=== PATIENT | male | born 1980 | race Caucasian/White ===

== ENCOUNTER 2016-12-07 18:52 | Emergency (ER) | payer OTHER ==
[~2016-12-07] VITALS: Ht 167.6 cm; Wt 95.3 kg
[~2016-12-07 18:52] MED LIST: IBU-200200 M1; MOTRIN800 MG PO; NORCO 10/325 MG1 TAB PO; ZYLOPRIM300 MG PO; [UNRECOGNIZED DRUG - REMARK]
[2016-12-07 19:04] VITALS: BP 160/81
--- NOTE | 2016-12-07 19:07 | NUR ---
Patient ambulated to OF. RN evaluating patient at bedside.
[2016-12-07] MEDS ORDERED: ACETAMINOPHEN EXTRA STRENGTH 500 MG TAB ONE (19:15)
--- NOTE | 2016-12-07 19:15 | NUR ---
RECEIVED REPORT FROM Rafiq BIANCHI RN FOR CONTINUITY OF CARE. PATIENT SITTING IN CHAIR.
--- NOTE | 2016-12-07 19:15 | NUR ---
PATIENT PRESENTS TO ED WITH FEVER, COUGH, AND GENERALIZED BODY ACHES AND JOINT PAIN. . DENIES N/V/D; SKIN IS PINK/WARM/DRY; AAOX4 WITH EVEN AND STEADY GAIT; LUNGS CLEAR BL; HR EVEN AND REGULAR; PATIENT STATES PAIN OF 10/10 AT THIS TIME; VSS; PT SEEN BY IRENA SMITH.
--- NOTE | 2016-12-07 19:15 | NUR ---
PA SMITH EVALUATING PATIENT
--- NOTE | 2016-12-07 19:20 | NUR ---
Pt report given to FERMIN STARR. Transfer of care at this time.
--- NOTE | 2016-12-07 19:21 | NUR ---
Dr. Vásquez evaluating patient
[2016-12-07 19:29] VITALS: BP 104/76
--- NOTE | 2016-12-07 19:29 | NUR ---
Patient discharged with v/s stable. Written and verbal after care instructions given and explained. Patient alert, oriented and verbalized understanding of instructions. Ambulatory with steady gait. All questions addressed prior to discharge. ID band removed. Patient advised to follow up with PMD. Rx of AUGMENTIN 875MG, CODEINE PHOSPHATE AND NORCO given. Patient educated on indication of medication including possible reaction and side effects. Opportunity to ask questions provided and answered. DISCHARGED BY
== END 2016-12-07 19:29 | disposition home or self-care (01) ==
LOC: MED 18:52
DX: J06.9 Acute upper respiratory infection, unspecified (principal)

== ENCOUNTER 2017-02-15 19:26 | Emergency (ER) | payer OTHER ==
[~2017-02-15] VITALS: Ht 170.2 cm; Wt 93.0 kg
[~2017-02-15 19:26] MED LIST changes: -IBU-200200 M1; +IBUP-974 PO; -MOTRIN800 MG PO; -NORCO 10/325 MG1 TAB PO; -ZYLOPRIM300 MG PO; -[UNRECOGNIZED DRUG - REMARK]
[2017-02-15 19:35] VITALS: BP 143/68
--- NOTE | 2017-02-15 20:12 | NUR ---
Patient ambulated to OF1.
--- NOTE | 2017-02-15 20:17 | NUR ---
PA student evaluating patient.
--- NOTE | 2017-02-15 20:28 | NUR ---
Dr. Abby willsuting patient.
[2017-02-15] MEDS ORDERED: KETOROLAC 30 MG/ML VIAL IVP ONE (20:35)
[2017-02-15 21:04] VITALS: BP 113/80
--- NOTE | 2017-02-15 21:04 | NUR ---
Patient discharged with v/s stable. Written and verbal after care instructions given and explained. Patient alert, oriented and verbalized understanding of instructions. Ambulatory with steady gait. All questions addressed prior to discharge. ID band removed. Patient advised to follow up with PMD. Rx of Indomethecin and Prednisone given. Patient educated on indication of medication including possible reaction and side effects. Opportunity to ask questions provided and answered.
== END 2017-02-15 21:04 | disposition home or self-care (01) ==
LOC: MED 19:26
DX: M10.9 Gout, unspecified (principal); M79.674 Pain in right toe(s); I10 Essential (primary) hypertension
CPT/HCPCS: 93005; 96372; 99283; J1885

== ENCOUNTER 2017-02-17 14:55 | Emergency (ER) | payer OTHER ==
[~2017-02-17] VITALS: Ht 167.6 cm; Wt 90.7 kg
[2017-02-17 15:01] VITALS: BP 139/80
--- NOTE | 2017-02-17 16:21 | NUR ---
Patient ambulated to bed 4. RN evaluating patient at bedside.
--- NOTE | 2017-02-17 16:30 | NUR ---
PT PRESENTS TO ER W/C/O LEFT ARM PAIN THAT EXTENDS FROM HAND INTO SHOULDER X3 DAYS. HX GOUT. PT STATES HE WAS SEEN IN ER 3 DAYS AGO FOR SAME S/SX, BUT FEELS WORSE TODAY. . DENIES N/V/D; SKIN IS PINK/WARM/DRY; AAOX4 WITH EVEN AND STEADY GAIT; LUNGS CLEAR BL; HR EVEN AND REGULAR; PT DENIES ANY FEVER, CP, SOB, OR COUGH AT THIS TIME; PATIENT STATES PAIN OF 10/10 AT THIS TIME; VSS; PATIENT POSITIONED FOR COMFORT; HOB ELEVATED; BEDRAILS UP X2; BED DOWN. ER MD MADE AWARE OF PT STATUS.
[2017-02-17] MEDS ORDERED: HYDROmorphone 1 MG/ML AMP IM ONE (16:45)
[2017-02-17 17:22] VITALS: BP 121/76
--- NOTE | 2017-02-17 17:22 | NUR ---
Patient discharged with v/s stable. Written and verbal after care instructions given and explained. Patient alert, oriented and verbalized understanding of instructions. Ambulatory with steady gait. All questions addressed prior to discharge. ID band removed. Patient advised to follow up with PMD. Rx of COLCHICINE, ALLOPURINOL given. Patient educated on indication of medication including possible reaction and side effects. Opportunity to ask questions provided and answered.
== END 2017-02-17 17:22 | disposition home or self-care (01) ==
LOC: MED 14:55
DX: M10.9 Gout, unspecified (principal); I10 Essential (primary) hypertension; M79.602 Pain in left arm; M79.671 Pain in right foot; M06.9 Rheumatoid arthritis, unspecified
CPT/HCPCS: 36415; 84550; 96372; 99283; J1170

== ENCOUNTER 2017-08-07 22:09 | Emergency (ER) | payer OTHER ==
[~2017-08-07] VITALS: Ht 170.2 cm; Wt 95.3 kg
[2017-08-07 22:33] VITALS: BP 141/71
--- NOTE | 2017-08-07 23:13 | NUR ---
PT TAKEN TO XRAY FROM THE [facility]
--- NOTE | 2017-08-07 23:19 | NUR ---
PT RETURN FROM XRAY
--- NOTE | 2017-08-08 00:03 | NUR ---
PT TAKEN TO BED 8
--- NOTE | 2017-08-08 00:05 | NUR ---
PATIENT IS A 36 Y/O MALE WHO PRESENTS TO THE ED C/O FOOT PAIN. PT STATES, "A WEIGHT FELL ON MY FOOT AND NOW IT HURTS." PT REPORTS 10/10 SHARP PAIN ON THE RIGHT FOOT THAT DOES NOT RADIATE. CAP REFILL IMMEDIATE, SKIN INTACT, UNABLE TO MOVE FOOT. PT DENIES CP, SOB, N/V/D. PT AAOX4, RR EVEN/UNLABORED. PT REPOSITIONED FOR COMFORT, BED IN LOWEST POSITION. ER MD DR. FLAHERTY NOTIFIED. WILL CONTINUE TO MONITOR.
--- NOTE | 2017-08-08 01:17 | NUR ---
Dr. Araujo evaluating patient at bedside.
[2017-08-08] MEDS ORDERED: KETOROLAC 60 MG/2 ML VIAL IM ONE (01:20)
[2017-08-08 01:35] VITALS: BP 137/68
== END 2017-08-08 01:35 | disposition home or self-care (01) ==
LOC: MED 22:09
DX: S90.31XA Contusion of right foot, initial encounter (principal); Z79.899 Other long term (current) drug therapy; W04.XXXA Fall while being carried or supported by other persons, initial encounter; Y93.89 Activity, other specified; Y92.89 Other specified places as the place of occurrence of the external cause; Y99.8 Other external cause status
CPT/HCPCS: 73630; 96372; 99284; J1885

== ENCOUNTER 2018-05-27 12:11 | Emergency (ER) | payer OTHER ==
[~2018-05-27] VITALS: Ht 170.2 cm; Wt 98.9 kg
[~2018-05-27 12:11] MED LIST changes: +[UNRECOGNIZED DRUG - CODE] SC
--- NOTE | 2018-05-27 12:20 | NUR ---
PT AMBULATED TO ER BED 10
[2018-05-27 12:29] VITALS: BP 120/69
--- NOTE | 2018-05-27 12:35 | NUR ---
PATIENT HAVE GOUT. LIMPIMG. TOOK ENDOMETHASINE AND NO RELIEF OF PAIN PER PATIENT. DENIES ACUTE INJURY. REPORTS EATING PORK, AND THEN FEELING IMMEDIATE PAIN. NO OBVIOUS SWELLINGOR REDNESS NOTED. HX: GOUT AND ARTHRITIS. TAKES ENDOMETHASINE,ALUPURINOL
[2018-05-27] MEDS ORDERED: HYDROcodone/APAP 5/325 MG 1 TAB TAB PO ONE (12:55)
[2018-05-27] MEDS ORDERED: KETOROLAC 30 MG/ML VIAL IM ONE (12:55)
--- NOTE | 2018-05-27 13:08 | NUR ---
MEDICATED ORDERED, WILL MONITOR FOR S.E.
[2018-05-27 13:34] VITALS: BP 119/72
--- NOTE | 2018-05-27 13:35 | NUR ---
Patient discharged with v/s stable. Written and verbal after care instructions given and explained. Patient alert, oriented and verbalized understanding of instructions. Ambulatory with steady gait. All questions addressed prior to discharge. ID band removed. Patient advised to follow up with PMD. Rx of NORCO, NAPROXYN given. Patient educated on indication of medication including possible reaction and side effects. Opportunity to ask questions provided and answered.
== END 2018-05-27 13:35 | disposition home or self-care (01) ==
LOC: MED 12:11
DX: M10.072 Idiopathic gout, left ankle and foot (principal); Z79.1 Long term (current) use of non-steroidal anti-inflammatories (NSAID)
CPT/HCPCS: 96372; 99283; J1885

== ENCOUNTER 2018-06-29 03:08 | Emergency (ER) | payer OTHER ==
[~2018-06-29] VITALS: Ht 170.2 cm; Wt 99.8 kg
[2018-06-29 03:09] VITALS: BP 142/86
--- NOTE | 2018-06-29 03:14 | NUR ---
PT TAKEN TO BED 7
--- NOTE | 2018-06-29 03:26 | NUR ---
BIB SELF C/O RT SHOULDER PAIN, AND BL LOWER LEG PAIN SINCE YESTERDAY. NO REDNESS, SWELLING , PT DENIES TRAUMA TO AFFECTED AREAS. PT STATES HE TOOK HIS GOUT MEDICINE YESTERDAY W/ NO RELIEF. PT SITTING IN BED, POSITIONED TO COMFORT, SIDE RAIL UP X1.
[2018-06-29] MEDS ORDERED: KETOROLAC 60 MG/2 ML VIAL IM ONE (04:15)
--- NOTE | 2018-06-29 04:53 | NUR ---
PT STATES PAIN RELIEF AT THIS TIME, LAYING IN BED, WILL CONTINUE TO MONITOR.
--- NOTE | 2018-06-29 05:56 | NUR ---
Dr. Vásquez evaluating patient at bedside.
[2018-06-29 06:05] VITALS: BP 140/77
== END 2018-06-29 06:06 | disposition home or self-care (01) ==
LOC: MED 03:08
DX: M10.011 Idiopathic gout, right shoulder (principal)
CPT/HCPCS: 96372; 99283; J1885

== ENCOUNTER 2018-07-19 11:16 | Emergency (ER) | payer OTHER ==
[~2018-07-19] VITALS: Ht 170.2 cm; Wt 98.1 kg
--- NOTE | 2018-07-19 11:32 | NUR ---
PT AMBULATES TO BED 1
[2018-07-19 11:35] VITALS: BP 133/83
--- NOTE | 2018-07-19 11:55 | NUR ---
37 YO M TO ER FOR N/V/D XTODAY, PT REPORTS BODY ACHES AND R FOOT PAIN DUE TO "GOUT", CONGUSTION PRESENT, PT DENIES SOB, CP , ABD PAIN. LS CLEAR THROUGHOUT, BS ACTIVE X4, ABD SOFT ROUND NON TENDER. ER MD MADE AWARE, WILL CONTINUE TO MONITOR.
--- NOTE | 2018-07-19 12:15 | NUR ---
PT RESTING IN NO APPEARENT DISTRESS WILL CONTINU TO MONITOR
--- NOTE | 2018-07-19 13:17 | NUR ---
Patient being evaluated by physician at bedside.
[2018-07-19 13:58] VITALS: BP 130/76
--- NOTE | 2018-07-19 13:58 | NUR ---
Patient discharged with v/s stable. Written and verbal after care instructions given and explained. Patient alert, oriented and verbalized understanding of instructions. Ambulatory with steady gait. All questions addressed prior to discharge. ID band removed. Patient advised to follow up with PMD. Rx of MOTRIN, ZOFRAN, IMODIUM, SUDAFED given. Patient educated on indication of medication including possible reaction and side effects. Opportunity to ask questions provided and answered.
== END 2018-07-19 13:58 | disposition home or self-care (01) ==
LOC: MED 11:16
DX: R11.2 Nausea with vomiting, unspecified (principal); R19.7 Diarrhea, unspecified; R09.81 Nasal congestion; K21.9 Gastro-esophageal reflux disease without esophagitis; M06.9 Rheumatoid arthritis, unspecified; Z79.1 Long term (current) use of non-steroidal anti-inflammatories (NSAID)
CPT/HCPCS: 99283

== ENCOUNTER 2018-11-27 18:56 | Emergency (ER) | payer OTHER ==
[~2018-11-27] VITALS: Ht 170.2 cm; Wt 90.7 kg
[2018-11-27 19:11] VITALS: BP 131/75
--- NOTE | 2018-11-27 21:02 | NUR ---
PT AMBULATED TO BED 02.
--- NOTE | 2018-11-27 21:21 | NUR ---
PT BIB SELF C/O R FOOT PAIN 05/21 HX OF GOUT. STEADY GAIT. NO EVIDENCE OF SWELLING, CMS INTACT.
--- NOTE | 2018-11-27 21:24 | NUR ---
Patient discharged with v/s stable. Written and verbal after care instructions given and explained. Patient alert, oriented and verbalized understanding of instructions. Ambulatory with steady gait. All questions addressed prior to discharge. ID band removed. Patient advised to follow up with PMD. Rx of TAMIFLU, PERCOCET, AND PREDNISONE given. Patient educated on indication of medication including possible reaction and side effects. Opportunity to ask questions provided and answered.
[2018-11-27 21:25] VITALS: BP 135/70
== END 2018-11-27 21:25 | disposition home or self-care (01) ==
LOC: MED 18:56
DX: M10.9 Gout, unspecified (principal); K21.9 Gastro-esophageal reflux disease without esophagitis; Z79.1 Long term (current) use of non-steroidal anti-inflammatories (NSAID); Z79.899 Other long term (current) drug therapy
CPT/HCPCS: 99283

== ENCOUNTER 2018-12-08 00:44 | Emergency (ER) | payer OTHER ==
[~2018-12-08] VITALS: Ht 170.2 cm; Wt 90.7 kg
[2018-12-08 00:50] VITALS: BP 133/103
--- NOTE | 2018-12-08 00:53 | NUR ---
PT AMBULATED TO LOBBY WITH VSS.
[2018-12-08] MEDS ORDERED: NAPROXEN 500 MG TAB PO ONE (02:40)
--- NOTE | 2018-12-08 02:40 | NUR ---
CALLED HOUSE SUP. FOR MEDICATION, NOT AVAILABLE IN ER PYXIS, WILL FOLLOW UP.
--- NOTE | 2018-12-08 03:00 | NUR ---
PT BIB SELF C/O RIGHT KNEE PAIN STARTING LAST NIGHT. PT STATES HE HAS GOUT AND THINKS HE IS HAVING GOUT "FLARE UP" PT TOOK HOME MEDS W/O RELIEF. PT DENEIS TRAUMA TO AREA, TENDERNESS TO KNEE, NO OPEN SKIN.
--- NOTE | 2018-12-08 03:01 | NUR ---
MANUEL NOT AVAILABLE, ER MADE AWARE, CHANGE IN ORDERS.
--- NOTE | 2018-12-08 03:01 | NUR ---
US AT BEDSIDE.
[2018-12-08] MEDS ORDERED: IBUPROFEN 600 MG TAB PO ONE (03:05)
[2018-12-08 03:49] VITALS: BP 140/98
[2018-12-08] MEDS ORDERED: NAPROXEN 500 MG TAB PO SCH (09:00)
== END 2018-12-08 03:49 | disposition home or self-care (01) ==
LOC: MED 00:44
DX: M10.061 Idiopathic gout, right knee (principal); K21.9 Gastro-esophageal reflux disease without esophagitis; Z79.899 Other long term (current) drug therapy
CPT/HCPCS: 87086; 93971; 99284; Q0092

== ENCOUNTER 2019-02-25 19:58 | Emergency (ER) | payer OTHER ==
[~2019-02-25] VITALS: Ht 170.2 cm; Wt 95.3 kg
[2019-02-25 20:09] VITALS: BP 143/51
--- NOTE | 2019-02-25 22:17 | NUR ---
PATIENT AAO, NO NEW SYMPTOMS REPORTED. AMB WITH STEADY GAIT.
--- NOTE | 2019-02-26 | NUR ---
TO BED # 06 AMBULATORY, REPORT GIVEN TO ELIZABETH CHRISTENSEN
--- NOTE | 2019-02-26 00:16 | NUR ---
BIB SELF REPORTS GOUT FLARE UP WORSE TODAY. STATE HE HAS AN APPT ON THURSDAY BUT HE COULD NOT STAND THE PAIN. 07/21 ACHING. RESPIS E/U, DENIES CP/SOB AT THIS TIME. PLACED IN BED, LOCKED IN LOW POSITION, WILL CONTINUE TO MONITOR CLOSELY. HX: GOUT, RA
--- NOTE | 2019-02-26 01:26 | NUR ---
PATIENT LEFT WITHOUT BEING SEEN AT THIS TIME.
== END 2019-02-26 01:26 | disposition left against medical advice (07) ==
LOC: MED 19:58
DX: M10.9 Gout, unspecified (principal); Z53.21 Procedure and treatment not carried out due to patient leaving prior to being seen by health care provider

== ENCOUNTER 2019-03-18 17:58 | Emergency (ER) | payer OTHER ==
[~2019-03-18] VITALS: Ht 170.2 cm; Wt 99.8 kg
[2019-03-18 18:20] VITALS: BP 135/83
--- NOTE | 2019-03-18 18:23 | NUR ---
PATIENT AMBULATED TO ER BED 12.
--- NOTE | 2019-03-18 18:30 | NUR ---
PT IS A 38 Y/O MALE WHO PRESENTS TO THE ED C/O L LEG AND R ARM PAIN X8 YEARS. PT REPORTS 10/10 ACHING L LEG AND R ARM PAIN. NO OBVIOUS TRAUMA/DEFORMITY. CMS INTACT. PT TOOK TYLENOL AT 1200. PT DENIES CP, SOB, N/V/D. PT AWAKE AND ALERT, RR EVEN/UNLABORED. PT REPOSITIONED FOR COMFORT, BED IN LOWEST POSITION. ER MD MONTGOMERY NOTIFIED. WILL CONTINUE TO MONITOR. MEDHX:RA RX:TYLENOL, IBUPROFEN, ORENCIA
[2019-03-18] MEDS ORDERED: KETOROLAC 60 MG/2 ML VIAL IM ONE (18:40)
[2019-03-18] MEDS ORDERED: DEXAMETHASONE 10 MG/ML VIAL IM ONE (18:40)
[2019-03-18 19:25] VITALS: BP 132/85
--- NOTE | 2019-03-18 19:25 | NUR ---
Patient discharged with v/s stable. Written and verbal after care instructions given and explained. Patient alert, oriented and verbalized understanding of instructions. Ambulatory with steady gait. All questions addressed prior to discharge. ID band removed. Patient advised to follow up with PMD. Rx of VOLTAREN WAS given. Patient educated on indication of medication including possible reaction and side effects. Opportunity to ask questions provided and answered.PT STATED HIS PAIN HAD DECREASED TO A LEVEL 4/10 UPON D/C.
== END 2019-03-18 19:25 | disposition home or self-care (01) ==
LOC: MED 17:58
DX: M10.9 Gout, unspecified (principal); K21.9 Gastro-esophageal reflux disease without esophagitis; Z79.1 Long term (current) use of non-steroidal anti-inflammatories (NSAID); Z79.899 Other long term (current) drug therapy
CPT/HCPCS: 96372; 99283; J1100; J1885

== ENCOUNTER 2019-05-17 16:51 | Emergency (ER) | payer OTHER ==
[~2019-05-17] VITALS: Ht 170.2 cm; Wt 104.4 kg
[2019-05-17 16:58] VITALS: BP 109/77
[2019-05-17] MEDS ORDERED: ALLO100T21 PO ×2 (17:13→17:15)
--- NOTE | 2019-05-17 17:25 | NUR ---
PT TAKEN TO BED 7.
--- NOTE | 2019-05-17 18:00 | NUR ---
PT PRESENT TO ED C/O COUGH WITH YELLOW SPUTUM, GENERALIZED BODY PAIN, FEVER AND NAUSEA /VOMITING SINCE YESTERDAY. PT TOOK TYLENOL AND NYQUIL YESTERDAY WITH NO RELIEF. AAOX4, GCS 15, RR EVEN UNLABORED, LUNG SOUNDS CLEAR TO AUSCULTATION BILATERALLY NOTED NON-PRODUCTIVE COUGH. DENIES DIARRHEA, ED MD DR. ALEXANDRE MADE AWARE, WILL CONTINUE TO MONITOR CLOSELY, BED IN LOWEST POSITION.
[2019-05-17] MEDS ORDERED: ALBUTEROL 0.083% 2.5 MG/3 ML NEBU INH ONE (18:15)
[2019-05-17] MEDS ORDERED: KETOROLAC 60 MG/2 ML VIAL IM ONE (18:15)
[2019-05-17] MEDS ORDERED: IPRATROPIUM 0.02% 0.5 MG/2.5 ML NEBU INH ONE (18:15)
--- NOTE | 2019-05-17 18:25 | NUR ---
FLU SWAB COLLECTED AND SENT TO LAB
--- NOTE | 2019-05-17 18:35 | NUR ---
RT AT BEDSIDE, PT RECEIVING BREATHING TX
[2019-05-17 18:36] LABS: APPEARANCE,URINE CLEAR (CLEAR); BILIRUBIN,URINE NEGATIVE (NEGATIVE); BLOOD, URINE TRACE-I (NEGATIVE); COLOR,URINE YELLOW (YELLOW); LEUKOCYTE ESTERASE ,URINE TRACE (NEGATIVE); NITRITE, URINE NEGATIVE (NEGATIVE); PH,URINE 5.5 (5.0-9.0); UGLUCOSE NEGATIVE (NEGATIVE)
[2019-05-17 18:53] LABS: WBC,URINE 16-25 (MOD) /HPF (0-5)
--- NOTE | 2019-05-17 19:15 | NUR ---
REPORT RECEIVED FROM FERMIN HEATH. TRANSFER OF CARE AT THIS TIME.
--- NOTE | 2019-05-17 19:41 | NUR ---
Dr. San evaluating patient at bedside.
[2019-05-17 20:00] VITALS: BP 116/80
--- NOTE | 2019-05-17 20:00 | NUR ---
Patient discharged with v/s stable. Written and verbal after care instructions given and explained. Patient alert, oriented and verbalized understanding of instructions. Ambulatory with steady gait. All questions addressed prior to discharge. ID band removed. Patient advised to follow up with PMD. Rx of Promethazine, Naprosyn, Cephalexin, Zofran given. Patient educated on indication of medication including possible reaction and side effects. Opportunity to ask questions provided and answered.
[2019-05-20 06:07] LABS: CHLAMYDIA TRACHOMATIS AMP DNA Negative (Negative)
== END 2019-05-17 20:13 | disposition home or self-care (01) ==
LOC: MED 16:51
DX: N39.0 Urinary tract infection, site not specified (principal); B34.9 Viral infection, unspecified; K21.9 Gastro-esophageal reflux disease without esophagitis; Z79.899 Other long term (current) drug therapy
CPT/HCPCS: 36415; 71046; 81001; 87086; 87491; 87804; 94640; 94760; 96372; 99284; J1885; J7613; J7644

== ENCOUNTER 2019-05-25 13:36 | Emergency (ER) | payer OTHER ==
[~2019-05-25] VITALS: Ht 170.2 cm; Wt 99.8 kg
[~2019-05-25 13:36] MED LIST changes: +ALLO100T21 PO
[2019-05-25 13:38] VITALS: BP 126/76
--- NOTE | 2019-05-25 13:44 | NUR ---
pt biba with c/o lft rib pain since yesterday. has hx of gout and ra. per pt, was seen at er two weeks ago fro chronic cough, pt still coughing , has dry cough. pt states felt pain at his lft knee 10/10 this am and lft rib pain 8/10 today. takes allopurinol, norco at home. took motrin at home for pain, no releif. denies any fever , chill, nausea or vomiting. denies any chest pain or sob at this time. pt connecetd to monitor . has even and non-labored breathing. dr. martinez at the bedside, assessing pt. will continue to monitor pt.
--- NOTE | 2019-05-25 14:32 | NUR ---
GAVE URINAL TO PT FOR URINE COLLECTION. RESTING COMFORTABLY IN HIS BED. WILL CONTINUE TO MONITOR PT.
[2019-05-25] MEDS ORDERED: COLCHICINE 0.6 MG TAB PO ONE ×2 (15:05→16:10)
[2019-05-25] MEDS ORDERED: methylPREDNISolone SS 125 MG/2 ML VIAL IM ONE (15:10)
--- NOTE | 2019-05-25 15:17 | NUR ---
CALLED PHARMACY REGARDING PTS MEDS. WILL DROP TO ER.
--- NOTE | 2019-05-25 16:20 | NUR ---
MEDICATED PT ORDERED. PT LYING COMFORTABLY IN HIS BED. WILL CONTIUE TO MONITOR PT.
[2019-05-25 16:40] VITALS: BP 123/70
--- NOTE | 2019-05-25 16:40 | NUR ---
Patient discharged with v/s stable. Written and verbal after care instructions given and explained. Patient alert, oriented and verbalized understanding of instructions. Ambulatory with steady gait. All questions addressed prior to discharge. ID band removed. Patient advised to follow up with PMD. Rx of prednisone, colchicine, promethazine/dextromethomorphan, & ibuprofen given. Patient educated on indication of medication including possible reaction and side effects. Opportunity to ask questions provided and answered.
== END 2019-05-25 16:40 | disposition home or self-care (01) ==
LOC: MED 13:36
DX: M10.9 Gout, unspecified (principal); R05 Cough; R50.9 Fever, unspecified; R10.9 Unspecified abdominal pain; K21.9 Gastro-esophageal reflux disease without esophagitis; M06.9 Rheumatoid arthritis, unspecified; Z79.899 Other long term (current) drug therapy; Z79.1 Long term (current) use of non-steroidal anti-inflammatories (NSAID)
CPT/HCPCS: 36415; 71045; 84550; 96372; 99284; J2930; Q0092

== ENCOUNTER 2019-08-03 16:50 | Emergency (ER) | payer OTHER ==
[~2019-08-03] VITALS: Ht 170.2 cm; Wt 104.3 kg
[2019-08-03 16:53] VITALS: BP 112/60
[2019-08-03] MEDS ORDERED: HYDROcodone/APAP 5/325 MG 1 TAB TAB PO ONE (17:20)
[2019-08-03] MEDS ORDERED: DEXAMETHASONE 10 MG/ML VIAL IM ONE (17:20)
[2019-08-03 17:44] VITALS: BP 112/60
== END 2019-08-03 17:44 | disposition home or self-care (01) ==
LOC: MED 16:50
DX: J30.9 Allergic rhinitis, unspecified (principal); M06.9 Rheumatoid arthritis, unspecified; M10.9 Gout, unspecified; K21.9 Gastro-esophageal reflux disease without esophagitis; Z87.891 Personal history of nicotine dependence; Z79.1 Long term (current) use of non-steroidal anti-inflammatories (NSAID); Z79.899 Other long term (current) drug therapy
CPT/HCPCS: 96372; 99283; J1100

== ENCOUNTER 2019-08-09 18:25 | Emergency (ER) | payer OTHER ==
[~2019-08-09] VITALS: Ht 170.2 cm; Wt 105.2 kg
[2019-08-09 18:35] VITALS: BP 157/87
[2019-08-09] MEDS ORDERED: ALBUTEROL SULFATE/IPRATROPIU 3 ML SOL IH ONE (19:10)
[2019-08-09] MEDS ORDERED: methylPREDNISolone SS 125 MG in WATER STERILE 2 ML IV ONE (19:50)
[2019-08-09] MEDS ORDERED: MAG SULF 2000 MG/WATER PREMIX 50 ML IV ONE (19:50)
[2019-08-09 22:47] VITALS: BP 127/69
== END 2019-08-09 22:47 | disposition home or self-care (01) ==
LOC: MED 18:25
DX: J20.9 Acute bronchitis, unspecified (principal); J45.909 Unspecified asthma, uncomplicated; K21.9 Gastro-esophageal reflux disease without esophagitis; G47.30 Sleep apnea, unspecified; M06.9 Rheumatoid arthritis, unspecified; Z79.899 Other long term (current) drug therapy; Z79.1 Long term (current) use of non-steroidal anti-inflammatories (NSAID)
CPT/HCPCS: 71045; 94640; 96365; 96366; 96375; 99283; J2930; J3475; J7620

== ENCOUNTER 2019-11-30 09:37 | Emergency (ER) | payer OTHER ==
[~2019-11-30] VITALS: Ht 170.2 cm; Wt 95.3 kg
--- NOTE | 2019-11-30 09:40 | NUR ---
PT TO ER BED 9
[2019-11-30 09:41] VITALS: BP 131/79
[2019-11-30 09:52] VITALS: BP 131/79
--- NOTE | 2019-11-30 09:54 | NUR ---
RECEIVED A 39/M FROM TRIAGE FOR C/O KNEE PAIN S/T MOVING BOXES YESTERDAY; PT ALSO C/O ELBOW PAIN AND HEADACHE. AMBULATORY FROM TRIAGE. NO DEFORMITY NOTED. CMS INTACT. IN BED FOR MSE.
== END 2019-11-30 10:20 | disposition home or self-care (01) ==
LOC: MED 09:37
DX: M76.892 Other specified enthesopathies of left lower limb, excluding foot (principal); K21.9 Gastro-esophageal reflux disease without esophagitis; Z79.899 Other long term (current) drug therapy
CPT/HCPCS: 99283

== ENCOUNTER 2021-04-30 00:24 | Emergency (ER) | payer OTHER ==
[~2021-04-30] VITALS: Ht 170.2 cm; Wt 98.4 kg
[2021-04-30 00:31] VITALS: BP 126/79
[2021-04-30] MEDS ORDERED: MORPHINE SULFATE 4 MG/ML SYR IM ONE (01:20)
[2021-04-30] MEDS ORDERED: KETOROLAC 60 MG/2 ML VIAL IM ONE (01:20)
--- NOTE | 2021-04-30 01:22 | NUR ---
ERMD IN TRIAGE FOR MEDICAL EVALUATION.
--- NOTE | 2021-04-30 01:26 | NUR ---
[facility] BEING DRAWN IN [facility].
--- NOTE | 2021-04-30 01:28 | NUR ---
PT TAKEN TO BED 10
--- NOTE | 2021-04-30 01:28 | NUR ---
PATIENT 40 Y/O MALE BIB SELF FOR C/O BILATERAL FOOT PAIN X 1 DAY. PER PATIENT STATES, "I THINK IT'S MY GOUT AGAIN BECAUSE I FEEL NUMBNESS AND TINGLING AND I FEEL LIKE MY FEET ARE SWOLLEN." PATIENT STATES PAIN IS 10/10 IN BILAT. FEET. CMS INTACT, PEDAL PULSES STRONG AND EQUAL BILAT. SKIN IS WARM AND DRY. PATIENT ALSO HAS C/O R SHOUDLER PAIN, 10/10. PATIENT STATES HAS HX OF TENDONITIS IN R SHOULDER JOINT. PATIENT ABLE TO MOVE IT BUT WITH INCRESED PAIN. CMS INTACT. RADIAL PULSES STRONG AND EQUAL BILAT. MEDHX: HYPERLIPIDEMIA, GOUT. NKA
[2021-04-30 03:00] VITALS: BP 126/79
[2021-04-30] MEDS ORDERED: FEBU40TA PO (03:00)
[2021-04-30] MEDS ORDERED: ALLO100T21 PO (03:00)
[2021-04-30] MEDS ORDERED: NAPR-54 PO (03:00)
[2021-04-30] MEDS ORDERED: COLC-30 PO (03:00)
--- NOTE | 2021-04-30 03:04 | NUR ---
Patient discharged with v/s stable. Written and verbal after care instructions given and explained. Patient verbalized understanding. Ambulatory with steady gait. All questions addressed prior to discharge. Advised to follow up with PMD. RX OF ULORIC, NAPROSYN AND ALLOPURINOL GIVEN
== END 2021-04-30 03:04 | disposition home or self-care (01) ==
LOC: MED 00:24
DX: M10.071 Idiopathic gout, right ankle and foot (principal); M10.072 Idiopathic gout, left ankle and foot; M10.021 Idiopathic gout, right elbow; M10.022 Idiopathic gout, left elbow; K21.9 Gastro-esophageal reflux disease without esophagitis; E78.5 Hyperlipidemia, unspecified; Z79.899 Other long term (current) drug therapy
CPT/HCPCS: 36415; 84550; 96372; 99284; J1885; J2270

== ENCOUNTER 2021-06-16 20:36 | Emergency (ER) | payer SELFPAY ==
[~2021-06-16] VITALS: Ht 170.2 cm; Wt 99.8 kg
[~2021-06-16 20:36] MED LIST changes: +COLC-30 PO; +FEBU40TA PO; +NAPR-54 PO
[2021-06-16 20:45] VITALS: BP 126/71
--- NOTE | 2021-06-16 20:48 | NUR ---
TO LOBBY A/W BED AMBULATORY
--- NOTE | 2021-06-16 21:50 | NUR ---
SEEN AND EXAMINED BY SMIRAN
[2021-06-16] MEDS ORDERED: TRAM50TA3 PO (22:11)
[2021-06-16] MEDS ORDERED: NAPR-54 PO (22:11)
[2021-06-16] MEDS ORDERED: ACET-10509 PO (22:11)
[2021-06-16 22:24] VITALS: BP 126/71
--- NOTE | 2021-06-16 22:25 | NUR ---
Patient discharged with v/s stable. Written and verbal after care instructions given and explained. Patient alert, oriented and verbalized understanding of instructions. Carried with steady gait. All questions addressed prior to discharge. ID band removed. Patient advised to follow up with PMD. Rx of NAPROSYN, TORADOL AND TYLENOL given. Patient educated on indication of medication including possible reaction and side effects. Opportunity to ask questions provided and answered.
== END 2021-06-16 22:25 | disposition home or self-care (01) ==
LOC: MED 20:36
DX: M10.9 Gout, unspecified (principal); K21.9 Gastro-esophageal reflux disease without esophagitis
CPT/HCPCS: 99283

== ENCOUNTER 2023-12-25 11:39 | Emergency (ER) | payer OTHER ==
[~2023-12-25] VITALS: Ht 170.2 cm; Wt 104.3 kg
[~2023-12-25 11:39] MED LIST changes: +ACET-10509 PO; +TRAM50TA3 PO
[2023-12-25 11:54] VITALS: BP 159/113; PULSE 98; RESP 18; TEMP 98.8; O2SAT 97
[2023-12-25] MEDS: DEXAMETHASONE 10 MG/ML VIAL IM ONE (12:33)
[2023-12-25] MEDS: KETOROLAC 30 MG/ML VIAL IM ONE (12:34)
[2023-12-25] MEDS ORDERED: METH4TAB1 PO (12:44)
[2023-12-25] MEDS ORDERED: ACET-8905 PO (12:44)
== END 2023-12-25 12:55 | disposition home or self-care (01) ==
LOC: MED 11:39
DX: M10.9 Gout, unspecified (principal); M25.519 Pain in unspecified shoulder; R03.0 Elevated blood-pressure reading, without diagnosis of hypertension; K21.9 Gastro-esophageal reflux disease without esophagitis; Z79.899 Other long term (current) drug therapy
CPT/HCPCS: 96372; 99284; J1100; J1885